=== PATIENT | female | born 1980 | race Caucasian/White ===

== ENCOUNTER 2016-11-22 21:21 | Emergency (ER) | payer MEDICAID ==
[~2016-11-22] VITALS: Ht 162.6 cm; Wt 56.8 kg
[~2016-11-22 21:21] MED LIST: AMITRIPTYLINE H25 M1 PO; ATIVAN 0.50.5 MG/TAB PO; BUSPAR10 MG PO; BUSPAR5 MG PO; CELEXA10 MG PO; CELEXA20 MG PO; CEPHALEXIN500 M1 PO; CLINDAMYCIN300 MG PO; CRANBERRY1 CAP PO; DESYREL 50MG50 MG PO; DESYREL DIVIDO150 M1 PO; DOXYCYCLINE 10100 MG PO; FLEXERIL 1010 MG/TAB PO; FLEXERIL10 MG PO; INDERAL 10MG10 MG PO; INTUNIV1 MG PO; INTUNIV2 MG PO; KLONOPIN 0.5MG0.5 MG PO; LORTAB 5/500 501 TAB PO; LYRICA 150MG C150 MG PO; LYRICA 75MG CAP75 MG PO; METRONIDAZOLE500 MG PO; MOTRIN800 MG PO; NEW ANTIDEPRESSANT; NO HOME MEDICATIONS; NORCO 325 MG-51 TAB PO; NORCO 325 MG-7.1 TAB PO; NORFLEX 10100 MG/TAB PO; PEPCID 20MG TAB20 MG PO; PHENERGAN 25 TA25 MG PO; PHENERGAN25 MG RC; PROAIR HFA0.09 MG/AC IH; PROPRANOLOL10 MG PO; PROTONIX20 MG PO; PROZAC 10MG10 MG PO; REGLAN 10MG10 MG/TAB PO; SARAFEM10 MG PO; SEVELLA; SYNTHROID0.075 MG/T PO; TENORMIN 2525 MG/TAB PO; TRAZODO50 MG PO; ULTRAM 50MG TAB50 MG PO; VICODIN 5/5001 UDTAB PO; VITAMIN D 1001000 IU PO; XANAX0.5 MG PO; ZANTAC 150MG T150 MG PO; ZOFRAN 4MG T4 MG/TAB PO; ZOLOFT; [UNRECOGNIZED DRUG - OTHER]
[2016-11-22 21:24] VITALS: TEMP 98.2
[2016-11-22] MEDS ORDERED: BENTYL 10MG10 MG/CAP PO (21:30)
[2016-11-22] MEDS ORDERED: PROTONIX 40MG T40 MG PO (21:31)
[2016-11-22] MEDS ORDERED: LEVSIN 0.10.125 MG/T PO (21:31)
[2016-11-22 22:03] LABS: BASO # 0.1 (0.0-0.2); BASO % 0.8 % (0.0-2.0); EOS # 0.2 (0.0-0.7); EOS % 3.4 % (0-4.0); GRAN # 3.7 (1.4-6.5); GRAN % 59.5 % (42.2-75.2); HEMATOCRIT 41.4 % (37.0-47.0); HEMOGLOBIN 14.2 g/dl (12.5-16.0); LYMPH % 32.3 % (20.0-51.0); MEAN CELL VOLUME 92 fl (80.0-100.0); MEAN CORPUSCULAR HEMOGLOBIN 32 pg (27.0-31.0); MEAN CORPUSCULAR HGB CONC 34 g/dl (33.0-37.0); MEAN PLATELET VOLUME 9.5 fl (7.4-10.4); MONO # 0.2 (0.1-0.6); MONO % 3.8 % (1.7-9.3); PLATELET COUNT 272 K/mm3 (130-400); RED BLOOD COUNT 4.48 M/mm3 (4.10-5.30); REDCELL DISTRIBUTION WIDTH-CV 11.2 % (11.5-14.5); WHITE BLOOD COUNT 6.3 K/mm3 (4.8-10.8)
[2016-11-22 22:15] LABS: ADJUSTED CALCIUM 9.4 mg/dL (8.4-10.2); ALBUMIN 4.6 gm/dL (3.5-5.0); BILIRUBIN,TOTAL 0.7 mg/dL (0.0-1.0); CALCIUM 9.9 mg/dL (8.4-10.2); CREATININE, serum 0.98 mg/dL (0.52-1.25); POTASSIUM 4.2 mmol/L (3.4-5.0); TOTAL PROTEIN 7.9 gm/dL (6.4-8.2)
[2016-11-22 22:57] LABS: PH 8 (5-8); SQUAMOUS EPITHELIAL 0-2 /hpf; URINE APPEARANCE Hazy; URINE BACTERIA Moderate /hpf; URINE BILIRUBIN Negative (NEGATIVE); URINE BLOOD Negative (NEGATIVE); URINE COLOR Yellow; URINE GLUCOSE Negative (NEGATIVE); URINE KETONE Negative (NEGATIVE); URINE RBC None Seen /hpf; URINE UROBILINOGEN Negative (NEGATIVE)
[2016-11-22 22:58] LABS: URINE WBC 0-2 /hpf
[2016-11-22] MEDS ORDERED: PHENERGAN 25 TA25 MG PO (23:38)
[2016-11-22] MEDS ORDERED: ZOFRAN ODT4 MG PO (23:38)
[2016-11-22] MEDS ORDERED: MACROBID 1100 MG/CAP PO (23:38)
[2016-11-22 23:58] VITALS: BP 128/70; PULSE 86
== END 2016-11-22 23:59 | disposition home or self-care (01) ==
LOC: COL.ER 21:21
PROVIDERS: Emergency Medicine
DX: R10.11 Right upper quadrant pain (principal); R11.10 Vomiting, unspecified; R10.13 Epigastric pain; R19.5 Other fecal abnormalities; R82.71 Bacteriuria
CPT/HCPCS: J1170; J2405; J2550; J7030

== ENCOUNTER 2016-12-21 18:17 | Emergency (ER) | payer MEDICAID ==
[~2016-12-21] VITALS: Ht 162.6 cm; Wt 57.3 kg
[~2016-12-21 18:17] MED LIST changes: +BENTYL 10MG10 MG/CAP PO; +LEVSIN 0.10.125 MG/T PO; +MACROBID 1100 MG/CAP PO; +PROTONIX 40MG T40 MG PO; +ZOFRAN ODT4 MG PO
[2016-12-21 18:20] VITALS: BP 102/53; TEMP 97.2
[2016-12-21 19:01] LABS: BASO # 0.1 (0.0-0.2); BASO % 0.5 % (0.0-2.0); EOS % 0.1 % (0-4.0); GRAN # 9.5 (1.4-6.5); GRAN % 77.4 % (42.2-75.2); HEMATOCRIT 41.7 % (37.0-47.0); HEMOGLOBIN 14.5 g/dl (12.5-16.0); LYMPH # 2.3 (1.2-3.4); LYMPH % 18.5 % (20.0-51.0); MEAN CELL VOLUME 91 fl (80.0-100.0); MEAN CORPUSCULAR HEMOGLOBIN 32 pg (27.0-31.0); MEAN CORPUSCULAR HGB CONC 35 g/dl (33.0-37.0); MEAN PLATELET VOLUME 9.7 fl (7.4-10.4); MONO # 0.4 (0.1-0.6); MONO % 3.2 % (1.7-9.3); PLATELET COUNT 343 K/mm3 (130-400); RED BLOOD COUNT 4.58 M/mm3 (4.10-5.30); REDCELL DISTRIBUTION WIDTH-CV 11.9 % (11.5-14.5); WHITE BLOOD COUNT 12.3 K/mm3 (4.8-10.8)
[2016-12-21 19:05] LABS: INR 1.2 (0.8-3.0); PROTHROMBIN TIME 13.6 SECONDS (9.7-12.8)
[2016-12-21 19:08] LABS: PARTIAL THROMBOPLASTIN TIME 35.2 SECONDS (26.0-37.0)
[2016-12-21 19:26] LABS: ADJUSTED CALCIUM 9.3 mg/dL (8.4-10.2); ALANINE AMINOTRANSFERASE 30 U/L (9-52); ALBUMIN 5.2 gm/dL (3.5-5.0); ALKALINE PHOSPHATASE 64 U/L (50-136); ANION GAP 16 mmol/L (7-16); BILIRUBIN,TOTAL 0.9 mg/dL (0.0-1.0); BLOOD UREA NITROGEN 14 mg/dL (7-17); CALCIUM 10.3 mg/dL (8.4-10.2); CARBON DIOXIDE 25 mmol/L (22-30); CHLORIDE 102 mmol/L (98-107); CREATININE, serum 0.83 mg/dL (0.52-1.25); ERYTHROCYTE SEDIMENTATION RATE 1 mm/hr (0-20); GLUCOSE 103 mg/dL (74-106); POTASSIUM 3.5 mmol/L (3.4-5.0); SODIUM 143 mmol/L (137-145); TOTAL PROTEIN 8.6 gm/dL (6.4-8.2)
[2016-12-21 19:39] LABS: C-REACTIVE PROTEIN < 0.5 mg/dL (0.0-0.9)
[2016-12-21 21:40] VITALS: PULSE 86
== END 2016-12-21 21:41 | disposition home or self-care (01) ==
LOC: COL.ER 18:17
PROVIDERS: Emergency Medicine
DX: R10.13 Epigastric pain (principal); R11.10 Vomiting, unspecified; R19.7 Diarrhea, unspecified
CPT/HCPCS: J1200; J1630; J7030; Q9967

== ENCOUNTER 2017-02-23 22:32 | Emergency (ER) | payer MEDICAID ==
[~2017-02-23] VITALS: Ht 162.6 cm; Wt 58.2 kg
[2017-02-23 22:36] VITALS: TEMP 98.2
[2017-02-23 23:05] VITALS: BP 101/61; PULSE 94
== END 2017-02-23 23:23 | disposition home or self-care (01) ==
LOC: COL.ER 22:32
DX: G43.909 Migraine, unspecified, not intractable, without status migrainosus (principal); M79.7 Fibromyalgia
CPT/HCPCS: J1200; J1885; J2550

== ENCOUNTER → 2017-03-21 | Outpatient (CLI) | payer MEDICAID ==
[~2017-03-21] MED LIST changes: +PERCOCET 325 MG1 TA2 PO
== END ==
LOC: COL.RAD 13:15
DX: M50.223 Other cervical disc displacement at C6-C7 level (principal)

== ENCOUNTER 2017-04-15 16:05 | Emergency (ER) | payer MEDICAID ==
[~2017-04-15] VITALS: Ht 162.6 cm; Wt 59.1 kg
[~2017-04-15 16:05] MED LIST changes: -PERCOCET 325 MG1 TA2 PO
[2017-04-15] MEDS ORDERED: PERCOCET 325 MG1 TA2 PO (16:09)
[2017-04-15 18:07] VITALS: BP 100/58; PULSE 65; TEMP 97.9
== END 2017-04-15 18:02 | disposition home or self-care (01) ==
LOC: COL.ER 16:05
DX: G89.29 Other chronic pain (principal); M54.6 Pain in thoracic spine; M79.7 Fibromyalgia; F17.210 Nicotine dependence, cigarettes, uncomplicated; Z79.891 Long term (current) use of opiate analgesic

== ENCOUNTER 2017-11-20 05:10 | Emergency (ER) | payer MEDICAID ==
[~2017-11-20] VITALS: Ht 162.6 cm; Wt 52.3 kg
[~2017-11-20 05:10] MED LIST changes: +PERCOCET 325 MG1 TA2 PO
[2017-11-20 05:12] VITALS: BP 98/61; TEMP 98
[2017-11-20] MEDS ORDERED: DAZIDOX10 MG PO (05:17)
[2017-11-20 05:52] VITALS: PULSE 97
== END 2017-11-20 06:11 | disposition home or self-care (01) ==
LOC: COL.ER 05:10
DX: M54.2 Cervicalgia (principal); F17.210 Nicotine dependence, cigarettes, uncomplicated; X58.XXXA Exposure to other specified factors, initial encounter
CPT/HCPCS: J1170; J2550

== ENCOUNTER 2018-03-19 13:29 | Emergency (ER) | payer MEDICAID ==
[~2018-03-19] VITALS: Ht 162.6 cm; Wt 52.3 kg
[~2018-03-19 13:29] MED LIST changes: +DAZIDOX10 MG PO
[2018-03-19 13:49] VITALS: BP 117/58; TEMP 97.1
[2018-03-19] MEDS ORDERED: TYLENOL 325MG325 MG PO (14:13)
[2018-03-19 16:34] VITALS: PULSE 68
== END 2018-03-19 16:35 | disposition home or self-care (01) ==
LOC: COL.ER 13:29
DX: G43.909 Migraine, unspecified, not intractable, without status migrainosus (principal); F17.210 Nicotine dependence, cigarettes, uncomplicated; M79.7 Fibromyalgia; Z91.040 Latex allergy status
CPT/HCPCS: J1170; J1200; J1885; J2550

== ENCOUNTER 2018-06-03 21:01 | Emergency (ER) | payer MEDICAID ==
[~2018-06-03] VITALS: Ht 162.6 cm; Wt 53.6 kg
[~2018-06-03 21:01] MED LIST changes: +TYLENOL 325MG325 MG PO
[2018-06-03 21:07] VITALS: BP 101/63; TEMP 99.1
[2018-06-04 00:35] VITALS: PULSE 60
== END 2018-06-04 00:43 | disposition home or self-care (01) ==
LOC: COL.ER 21:01
DX: S16.1XXA Strain of muscle, fascia and tendon at neck level, initial encounter (principal); S06.0X0A Concussion without loss of consciousness, initial encounter; M79.7 Fibromyalgia; G89.29 Other chronic pain; F17.210 Nicotine dependence, cigarettes, uncomplicated; F12.90 Cannabis use, unspecified, uncomplicated; Z98.51 Tubal ligation status; V49.9XXA Car occupant (driver) (passenger) injured in unspecified traffic accident, initial encounter; W22.8XXA Striking against or struck by other objects, initial encounter; Y92.410 Unspecified street and highway as the place of occurrence of the external cause

== ENCOUNTER 2018-06-27 12:29 | Emergency (ER) | payer MEDICAID ==
[~2018-06-27] VITALS: Ht 162.6 cm; Wt 49.5 kg
[2018-06-27 12:36] VITALS: TEMP 98.9
[2018-06-27 15:30] LABS: COLLECTION METHOD CLEAN CATCH
[2018-06-27 15:44] LABS: BUDDING YEAST Present /hpf; MUCOUS Present /lpf; PH 5 (5-8); SQUAMOUS EPITHELIAL 0-2 /hpf; URINE APPEARANCE Clear; URINE BACTERIA Many /hpf; URINE BILIRUBIN Negative (NEGATIVE); URINE BLOOD 1+ (NEGATIVE); URINE COLOR Yellow; URINE GLUCOSE Negative (NEGATIVE); URINE KETONE Negative (NEGATIVE); URINE LEUKOCYTE ESTERASE Negative (NEGATIVE); URINE NITRATE Positive (NEGATIVE); URINE PROTEIN(semi-quant) Negative (NEGATIVE); URINE RBC 0-2 /hpf; URINE UROBILINOGEN Negative (NEGATIVE)
[2018-06-27] MEDS ORDERED: CEPHALEXIN500 M1 PO (16:19)
[2018-06-27 16:20] VITALS: BP 121/78; PULSE 75
== END 2018-06-27 16:20 | disposition home or self-care (01) ==
LOC: COL.ER 12:29
PROVIDERS: Physician Assistant
DX: M79.7 Fibromyalgia (principal); N39.0 Urinary tract infection, site not specified; G89.29 Other chronic pain; E03.9 Hypothyroidism, unspecified; F17.210 Nicotine dependence, cigarettes, uncomplicated; F12.10 Cannabis abuse, uncomplicated; Z91.040 Latex allergy status; Z79.891 Long term (current) use of opiate analgesic

== ENCOUNTER → 2018-07-18 | Outpatient (CLI) | payer MEDICAID | LOC: MHCPAIN 10:21 | DX: G89.29 Other chronic pain (principal); M50.90 Cervical disc disorder, unspecified, unspecified cervical region; M54.12 Radiculopathy, cervical region; M54.81 Occipital neuralgia; R51 Headache | CPT/HCPCS: G0463 ==

== ENCOUNTER 2018-08-31 09:27 | Emergency (ER) | payer MEDICAID ==
[~2018-08-31] VITALS: Ht 162.6 cm; Wt 50.0 kg
[2018-08-31 09:30] VITALS: TEMP 98.3
[2018-08-31 11:10] VITALS: BP 81/47; PULSE 75
== END 2018-08-31 11:11 | disposition home or self-care (01) ==
LOC: COL.ER 09:27
DX: S16.1XXA Strain of muscle, fascia and tendon at neck level, initial encounter (principal); G43.909 Migraine, unspecified, not intractable, without status migrainosus; M79.7 Fibromyalgia; Z90.49 Acquired absence of other specified parts of digestive tract; Z90.89 Acquired absence of other organs; F17.210 Nicotine dependence, cigarettes, uncomplicated; X50.0XXA Overexertion from strenuous movement or load, initial encounter; Y93.E1 Activity, personal bathing and showering
CPT/HCPCS: J1885; J2550

== ENCOUNTER 2018-11-29 09:58 | Emergency (ER) | payer MEDICAID ==
[~2018-11-29] VITALS: Ht 162.6 cm; Wt 52.3 kg
[2018-11-29 10:00] VITALS: TEMP 97.7
[2018-11-29] MEDS ORDERED: FLEXERIL 1010 MG/TAB PO (12:13)
[2018-11-29 12:33] VITALS: BP 92/63; PULSE 60
== END 2018-11-29 12:34 | disposition home or self-care (01) ==
LOC: COL.ER 09:58
DX: G89.29 Other chronic pain (principal); M54.2 Cervicalgia; F12.90 Cannabis use, unspecified, uncomplicated; F17.210 Nicotine dependence, cigarettes, uncomplicated; F31.9 Bipolar disorder, unspecified; F41.9 Anxiety disorder, unspecified; F60.3 Borderline personality disorder; Z98.51 Tubal ligation status; Z90.89 Acquired absence of other organs; Z90.49 Acquired absence of other specified parts of digestive tract
CPT/HCPCS: J1170; J1885; J2550

== ENCOUNTER 2019-05-02 14:38 | Emergency (ER) | payer MEDICAID ==
[~2019-05-02] VITALS: Ht 162.6 cm; Wt 56.8 kg
[2019-05-02 14:57] VITALS: BP 104/63; TEMP 97.9
[2019-05-02] MEDS ORDERED: AMOXICILLIN 50500 MG PO (16:52)
[2019-05-02 17:34] VITALS: PULSE 84
== END 2019-05-02 17:35 | disposition home or self-care (01) ==
LOC: COL.ER 14:38
DX: J06.9 Acute upper respiratory infection, unspecified (principal); G43.909 Migraine, unspecified, not intractable, without status migrainosus; F41.9 Anxiety disorder, unspecified; F17.210 Nicotine dependence, cigarettes, uncomplicated; F12.90 Cannabis use, unspecified, uncomplicated; Z98.51 Tubal ligation status; Z90.49 Acquired absence of other specified parts of digestive tract
CPT/HCPCS: J1885; J2550

== ENCOUNTER 2019-09-08 09:03 | Emergency (ER) | payer MEDICAID ==
[~2019-09-08] VITALS: Ht 162.6 cm; Wt 59.1 kg
[~2019-09-08 09:03] MED LIST changes: +AMOXICILLIN 50500 MG PO
[2019-09-08 09:05] VITALS: BP 99/66; TEMP 98.6
[2019-09-08] MEDS ORDERED: NAPROSYN500 MG PO (10:07)
[2019-09-08] MEDS ORDERED: FLEXERIL 1010 MG/TAB PO (10:07)
[2019-09-08 10:35] VITALS: PULSE 67
== END 2019-09-08 10:37 | disposition home or self-care (01) ==
LOC: COL.ER 09:03
DX: G89.29 Other chronic pain (principal); M54.2 Cervicalgia; F17.210 Nicotine dependence, cigarettes, uncomplicated; Z90.89 Acquired absence of other organs; Z98.51 Tubal ligation status
CPT/HCPCS: J1885

== ENCOUNTER 2020-06-12 17:15 | Emergency (ER) | payer MEDICAID ==
[~2020-06-12] VITALS: Ht 162.6 cm; Wt 53.2 kg
[~2020-06-12 17:15] MED LIST changes: +NAPROSYN500 MG PO
[2020-06-12 17:29] VITALS: TEMP 98.6
[2020-06-12 20:29] VITALS: BP 97/60; PULSE 80
== END 2020-06-12 20:33 | disposition home or self-care (01) ==
LOC: COL.ER 17:15
DX: S61.512A Laceration without foreign body of left wrist, initial encounter (principal); F17.210 Nicotine dependence, cigarettes, uncomplicated; Z23 Encounter for immunization; W26.8XXA Contact with other sharp object(s), not elsewhere classified, initial encounter; Y92.009 Unspecified place in unspecified non-institutional (private) residence as the place of occurrence of the external cause
CPT/HCPCS: J0690; Q4021

== ENCOUNTER 2020-08-08 13:25 | Emergency (ER) | payer MEDICAID ==
[~2020-08-08] VITALS: Ht 162.6 cm; Wt 52.3 kg
[2020-08-08 13:38] VITALS: TEMP 98.3
[2020-08-08] MEDS ORDERED: TYLENOL 500MG500 MG PO (13:44)
[2020-08-08 15:35] VITALS: BP 102/68; PULSE 83
== END 2020-08-08 15:35 | disposition home or self-care (01) ==
LOC: COL.ER 13:25
DX: G43.909 Migraine, unspecified, not intractable, without status migrainosus (principal); M79.7 Fibromyalgia; F17.210 Nicotine dependence, cigarettes, uncomplicated; Z90.49 Acquired absence of other specified parts of digestive tract
CPT/HCPCS: J1200; J1885; J2550; J7030

== ENCOUNTER 2021-05-01 11:04 | Emergency (ER) | payer MEDICAID ==
[~2021-05-01] VITALS: Ht 162.6 cm; Wt 47.7 kg
[~2021-05-01 11:04] MED LIST changes: +TYLENOL 500MG500 MG PO
[2021-05-01 11:16] VITALS: TEMP 97.6
[2021-05-01 12:22] LABS: COLLECTION METHOD CLEAN CATCH
[2021-05-01 12:28] LABS: BASO % 0.4 % (0.0-2.0); EOS # 0.1 (0.0-0.7); EOS % 1.8 % (0-4.0); GRAN # 2.7 (1.4-6.5); GRAN % 60.1 % (42.2-75.2); HEMATOCRIT 39.6 % (37.0-47.0); HEMOGLOBIN 13.4 g/dl (12.5-16.0); LYMPH # 1.5 (1.2-3.4); LYMPH % 33.5 % (20.0-51.0); MEAN CELL VOLUME 91 fl (80.0-100.0); MEAN CORPUSCULAR HEMOGLOBIN 31 pg (27.0-31.0); MEAN CORPUSCULAR HGB CONC 34 g/dl (33.0-37.0); MEAN PLATELET VOLUME 10.1 fl (7.4-10.4); MONO # 0.2 (0.1-0.6); PLATELET COUNT 207 K/mm3 (130-400); RED BLOOD COUNT 4.37 M/mm3 (4.10-5.30); REDCELL DISTRIBUTION WIDTH-CV 11.7 % (11.5-14.5)
[2021-05-01 12:35] LABS: ALBUMIN 4.2 gm/dL (3.5-5.0); BILIRUBIN,TOTAL 0.5 mg/dL (0.0-1.0); CALCIUM 9.2 mg/dL (8.4-10.2); CREATININE, serum 0.51 (0.52-1.25); POTASSIUM 4.3 mmol/L (3.4-5.0); TOTAL PROTEIN 7.6 gm/dL (6.4-8.2)
[2021-05-01 12:37] LABS: MUCOUS Present /lpf; PH 6 (5-8); SQUAMOUS EPITHELIAL 0-2 /hpf; URINE APPEARANCE Cloudy; URINE BACTERIA Many /hpf; URINE BILIRUBIN Negative (NEGATIVE); URINE BLOOD 1+ (NEGATIVE); URINE COLOR Yellow; URINE GLUCOSE Negative (NEGATIVE); URINE KETONE Negative (NEGATIVE); URINE LEUKOCYTE ESTERASE Negative (NEGATIVE); URINE NITRATE Negative (NEGATIVE); URINE PROTEIN(semi-quant) Negative (NEGATIVE); URINE RBC 0-2 /hpf; URINE UROBILINOGEN Negative (NEGATIVE)
[2021-05-01] MEDS ORDERED: DECADRON6 MG PO (12:55)
[2021-05-01 13:28] VITALS: BP 102/71; PULSE 62
--- NOTE | 2021-05-01 14:20 | NUR ---
CHANTAL informed by ER nurse that patient wanted more information from the community care team due to being homeless. Nurse stated that patient currently has a place to go, but just wanted more information to obtain further resources. Patient's name and number [phone] provided to the dept concierge manager to further assist with providing patient with information in regards to the community care team.
[2021-05-02] MEDS ORDERED: BACTRIM DS 8001 TAB PO (08:37)
--- NOTE | 2021-05-07 15:02 | NUR ---
Attempted to contact patient without success. Will continue efforts to call patient.
--- NOTE | 2021-05-11 13:34 | NUR ---
tire worker attempted to contact patient to discuss Community care team, without success.
== END 2021-05-01 13:36 | disposition home or self-care (01) ==
LOC: COL.ER 11:04
PROVIDERS: Emergency Medicine
DX: U07.1 COVID-19 (principal); F17.210 Nicotine dependence, cigarettes, uncomplicated
CPT/HCPCS: J1100; J1200; J1885; J2060; J2765; J7030

== ENCOUNTER 2023-11-14 07:32 | Day surgery (SDC) | payer MEDICAID ==
[~2023-11-14] VITALS: Ht 162.6 cm; Wt 63.5 kg
[~2023-11-14 07:32] MED LIST changes: +BACTRIM DS 8001 TAB PO; +DECADRON6 MG PO; +OMNICEF 300MG300 MG PO
[2023-11-14 08:45] VITALS: BP 103/70; PULSE 86; TEMP 98.2
[2023-11-14 09:45] VITALS: BP 78/48; PULSE 72; TEMP 98.3
[2023-11-14 10:00] VITALS: BP 85/56; PULSE 77
[2023-11-14 10:15] VITALS: BP 85/60; PULSE 80
[2023-11-14 10:30] VITALS: BP 91/69; PULSE 66
--- NOTE | 2023-11-14 11:56 | NUR ---
[id number]: PT TO [facility] FROM ENDO S/P EGD (COLONOSCOPY ABORTED DUE TO INCOMPLETE BOWEL PREP) A&O, PLACED ON MONITOR, VSS ON RA (BP LOW, MAP WDL, POSITIONED IN RECLINED POSITION INITIALY, DENIES COMPAINT, IVF LEFT TO INFUSE ORDERED UNTIL BP RETURNED TO BASELINE (PRIOR TO DC HOME)) RECEIVED REPORT AND ASSUMED CARE OF PT FROM [facility] AT BEDSIDE PROVIDED FLUID/FOODS, TOLERATING WELL MD IN TO SPEAK TO PT/FAMILY AFTER PROCEDURE PT HAS REMAINED A&O, NAD, VSS ON RA, TOLERATING PO, IS WITHOUT SIGNIFICANT COMPLAINT, WITH STEADY GAIT THRU OUT STAY IV D/C'D. D/C INSTRUCTIONS, ANY FOLLOW UP REVIEWED AND HANDED TO PT. ALL QUESTIONS AND CONCERNS ADDRESSED TO PT SATISFACTION. TAKEN TO EXIT VIA W/C WITH ALL BELONGINGS AND PAPERWORK IN HAND, ASSISTED INTO PASSENGER SEAT OF POV. MOM TO DRIVE HOME.
== END 2023-11-14 11:05 | disposition home or self-care (01) ==
LOC: SDCO 07:32
DX: K29.30 Chronic superficial gastritis without bleeding (principal); K29.80 Duodenitis without bleeding; K22.89 Other specified disease of esophagus; K92.1 Melena; K92.0 Hematemesis; R63.4 Abnormal weight loss; K59.00 Constipation, unspecified; B96.81 Helicobacter pylori [H. pylori] as the cause of diseases classified elsewhere
CPT/HCPCS: J2704; J7120

== ENCOUNTER 2024-07-12 12:51 | Emergency (ER) | payer MEDICAID ==
[~2024-07-12] VITALS: Ht 162.6 cm; Wt 63.6 kg
[2024-07-12 12:59] VITALS: TEMP 98.3
[2024-07-12] MEDS ORDERED: Ketorolac 15 MG/ML VIAL IV ONE (13:30)
[2024-07-12] MEDS ORDERED: diphenhydrAMINE 50 MG/ML 1 ML VIAL IV ONE (13:30)
[2024-07-12] MEDS ORDERED: NS 1,000 ML IV ONE (13:30)
[2024-07-12 13:48] LABS: BASO % 0.6 % (0.0-2.0); EOS # 0.1 K/mm3 (0.0-0.7); EOS % 1.7 % (0.0-4.0); GRAN % 64.1 % (42.2-75.2); HEMATOCRIT 38.7 % (37.0-47.0); HEMOGLOBIN 12.8 g/dl (12.5-16.0); LYMPH # 1.7 K/mm3 (1.2-3.4); LYMPH % 27.1 % (20.0-51.0); MEAN CELL VOLUME 90 fl (80.0-100.0); MEAN CORPUSCULAR HEMOGLOBIN 30 pg (27-31); MEAN CORPUSCULAR HGB CONC 33 g/dl (33.0-37.0); MEAN PLATELET VOLUME 9.7 fl (7.4-10.4); MONO # 0.4 K/mm3 (0.1-0.6); MONO % 6.3 % (1.7-9.3); PLATELET COUNT 262 K/mm3 (130-400); RED BLOOD COUNT 4.29 M/mm3 (4.10-5.30); REDCELL DISTRIBUTION WIDTH-CV 13.3 % (11.5-14.5)
[2024-07-12 14:07] LABS: ALANINE AMINOTRANSFERASE < 6 U/L (0-55); ALBUMIN 3.8 g/dL (3.5-5.0); ALKALINE PHOSPHATASE 66 U/L (40-150); ANION GAP 11 mmol/L (7-16); AST,SGOT 12 U/L (5-34); BILIRUBIN,TOTAL 0.3 mg/dL (0.2-1.2); BLOOD UREA NITROGEN 5 mg/dL (7-19); CALCIUM 9.5 mg/dL (8.4-10.2); CHLORIDE 108 mEq/L (98-107); CREATININE, serum 0.75 mg/dL (0.57-1.11); GLUCOSE 99 mg/dL (70-99); POTASSIUM 4.1 mEq/L (3.5-4.5); SODIUM 141 mEq/L (136-145); TOTAL PROTEIN 7.2 g/dl (6.2-8.1)
[2024-07-12 14:37] LABS: URINE APPEARANCE CLEAR (CLEAR/HAZY); URINE BLOOD NEGATIVE (NEGATIVE); URINE COLOR YELLOW (YELLOW); URINE GLUCOSE NEGATIVE (NEGATIVE); URINE KETONE NEGATIVE (NEGATIVE); URINE NITRATE NEGATIVE (NEGATIVE); URINE PROTEIN(semi-quant) NEGATIVE (NEGATIVE); URINE UROBILINOGEN 0.2 E.U/dL (0.2-1.0)
[2024-07-12 14:42] LABS: TRICYCLIC ANTIDEPRESS URINE NEGATIVE (NEGATIVE)
[2024-07-12] MEDS ORDERED: CEPHALEXIN500 M1 PO (15:03)
[2024-07-12] MEDS ORDERED: cefTRIAXone 1 G in Water For Injection,Sterile 10 ML IV ONE (15:15)
[2024-07-12 15:32] VITALS: BP 94/63; PULSE 59
[2024-07-13 09:47] LABS: COLLECTION METHOD CLEAN CATCH
== END 2024-07-12 15:32 | disposition home or self-care (01) ==
LOC: COL.ER 12:51
PROVIDERS: Physician Assistant
DX: G43.909 Migraine, unspecified, not intractable, without status migrainosus (principal); N39.0 Urinary tract infection, site not specified; F17.210 Nicotine dependence, cigarettes, uncomplicated; Z91.040 Latex allergy status
CPT/HCPCS: J0696; J1200; J1885; J2765; J7030

== ENCOUNTER 2024-07-13 19:29 | Emergency (ER) | payer MEDICAID ==
[~2024-07-13] VITALS: Ht 162.6 cm; Wt 63.6 kg
[2024-07-13 19:34] VITALS: TEMP 98.1
[2024-07-13] MEDS ORDERED: diphenhydrAMINE 50 MG/ML 1 ML VIAL IM ONE (20:00)
[2024-07-13] MEDS ORDERED: Ketorolac 30 MG/ML VIAL IM ONE (20:00)
[2024-07-13 21:56] VITALS: BP 107/69; PULSE 53
== END 2024-07-13 21:56 | disposition home or self-care (01) ==
LOC: COL.ER 19:29
DX: G43.909 Migraine, unspecified, not intractable, without status migrainosus (principal); F17.200 Nicotine dependence, unspecified, uncomplicated; Z91.040 Latex allergy status
CPT/HCPCS: J0780; J1200; J1885